=== PATIENT | female | born 1985 | race Two or more races ===

== ENCOUNTER 2016-07-03 14:06 | Emergency (ER) | payer OTHER ==
[~2016-07-03] VITALS: Ht 167.6 cm; Wt 80.5 kg
[2016-07-03 14:13] VITALS: BP 152/90
[2016-07-03] MEDS ORDERED: HYDROcodone/APAP 5/325 TABLET PO ONE (15:00)
[2016-07-03] MEDS ORDERED: KETOROLAC 30 MG/1 ML IM ONE (15:00)
[2016-07-03] MEDS ORDERED: HYDROcodone/APAP 5/325 TABLET ONE (15:03)
== END 2016-07-03 16:26 | disposition home or self-care (01) ==
LOC: ED 16:20
DX: S13.4XXA Sprain of ligaments of cervical spine, initial encounter (principal); S23.3XXA Sprain of ligaments of thoracic spine, initial encounter; V43.62XA Car passenger injured in collision with other type car in traffic accident, initial encounter; Y93.89 Activity, other specified; Y92.410 Unspecified street and highway as the place of occurrence of the external cause; Y99.8 Other external cause status
CPT/HCPCS: 72020; 72050; 72072; 99284